=== PATIENT | female | born 1945 | race Caucasian/White ===

== ENCOUNTER 2017-05-07 00:46 | Outpatient (CLI) | payer SELFPAY ==
[2017-05-07 12:26] LABS: HEMOGLOBIN A1C 5.6 % (4.5-6.2)
[2017-05-07 12:42] LABS: CHOL/HDL RATIO 2.3 (0.00-4.99)
== END 2017-05-07 23:59 | disposition home or self-care (01) ==
LOC: HW HEART 00:46
DX: Z00.00 Encounter for general adult medical examination without abnormal findings (principal)
CPT/HCPCS: 36415

== ENCOUNTER 2017-05-24 13:40 | Emergency (ER) | payer MEDICARE, BC ==
[~2017-05-24] VITALS: Ht 165.1 cm; Wt 55.0 kg
[2017-05-24 14:13] VITALS: BP 119/67
[2017-05-24 15:24] LABS: CLARITY,URINE SLIGHTLY CLOUDY (Clear); COLOR,URINE YELLOW (Yellow); GLUCOSE, URINE NEGATIVE (Neg); KETONES,URINE NEGATIVE (Neg); LEUKOCYTE ESTERASE ,URINE LARGE (Neg); NITRITES, URINE NEGATIVE (Neg); OCCULT BLOOD,URINE SMALL (Neg); PH,URINE 6.5 (4.8-8.0); PROTEIN,URINE 30 mg/dl (Neg); UROBILINOGEN,URINE 0.2 E.U/dL (0.2-1.0)
[2017-05-24 15:29] LABS: UA COLLECTION TYPE CLN CATCH MIDSTREAM
[2017-05-24 15:30] LABS: WBC,URINE TNTC /HPF (0-4)
[2017-05-24 15:31] LABS: BACTERIA,URINE 1+ /HPF (Neg); MUCUS STRANDS NONE SEEN /LPF (Neg); SQUAMOUS EPITHELIAL CELL,UR NONE SEEN /LPF (FEW); WBC CLUMPS,URINE MODERATE /HPF (NEGATIVE)
[2017-05-24] MEDS ORDERED: CEPH-572 PO (15:47)
[2017-05-24] MEDS ORDERED: PHEN-824 PO (15:49)
== END 2017-05-24 15:51 | disposition home or self-care (01) ==
LOC: ER 13:41
DX: N39.0 Urinary tract infection, site not specified (principal)
CPT/HCPCS: 81001; 87077; 87088; 87186; 99284